=== PATIENT | female | born 1980 ===

== ENCOUNTER 2017-04-04 12:54 | Outpatient (CLI) | payer OTHER ==
[~2017-04-04 12:54] MED LIST: GABAPENTIN100 MG PO
== END 2017-04-04 13:01 | disposition home or self-care (01) ==
LOC: RAD 12:54
DX: M76.11 Psoas tendinitis, right hip (principal)

== ENCOUNTER 2023-03-01 10:26 | Outpatient (CLI) | payer OTHER ==
[~2023-03-01 10:26] MED LIST changes: +NEURONTIN300 MG PO
== END 2023-03-01 10:52 | disposition home or self-care (01) ==
LOC: SONOGRAMA 10:26
PROVIDERS: ATTEND Pathology Anatomic Pathology & Clinical Pathology
DX: D34 Benign neoplasm of thyroid gland (principal); E07.89 Other specified disorders of thyroid; E04.2 Nontoxic multinodular goiter

== ENCOUNTER 2023-04-27 07:16 | Outpatient (CLI) | payer OTHER | END 2023-04-27 07:25 | disposition home or self-care (01) | LOC: MAMO-SONO 07:16 | PROVIDERS: ATTEND Obstetrics & Gynecology | DX: N85.8 Other specified noninflammatory disorders of uterus (principal); N64.4 Mastodynia; N63.0 Unspecified lump in unspecified breast; Z12.31 Encounter for screening mammogram for malignant neoplasm of breast | CPT/HCPCS: 72197; 76641; 77067; Q9965; 72196 ==

== ENCOUNTER 2023-04-27 12:07 | Outpatient (CLI) | payer OTHER ==
[2023-04-27 13:48] LABS: HEMATOCRIT 38.5 % (36.0-45.00); HEMOGLOBIN 13.2 g/dL (12.0-15.00); MEAN CELL VOLUME 86.9 fL (80.00-100.00); MEAN CORPUSCULAR HEMOGLOBIN 29.8 pg (27.00-32.0); MEAN CORPUSCULAR HGB CONC 34.2 g/dl (32.0-36.0); PLATELET COUNT 276 K/uL (150-450); RED BLOOD COUNT 4.42 M/uL (4.00-6.00); RED CELL DISTRIBUTION WIDTH 14.2 % (11.5-14.5)
[2023-04-27 14:26] LABS: ALBUMIN 3.3 gm/dL (3.4-5.0); BILIRUBIN TOTAL 0.33 mg/dL (0.3-1.2); CALCIUM 8.1 mg/dL (8.5-10.1); CHOL HDL RATIO 4.9 (0-5.0); CREATININE SERUM 0.63 mg/dL (0.55-1.02); GFR 102.66; GLOBULINA 3.7 G/DL (2.4-3.5); POTASSIUM 3.55 mEq/L (3.5-5.1); T4 FREE 1.03 NG/ML (0.76-1.46)
[2023-04-27 14:34] LABS: FOLIC ACID 11.32 ng/ml (4.78-20); VITAMIN D3 25 HYDROXY 27.25 ng/ml (30-120)
== END 2023-04-27 12:30 | disposition home or self-care (01) ==
LOC: LAB 12:07
PROVIDERS: ATTEND Internal Medicine Endocrinology, Diabetes & Metabolism
DX: D50.9 Iron deficiency anemia, unspecified (principal); E88.810 Metabolic syndrome; R73.01 Impaired fasting glucose

== ENCOUNTER → 2023-04-28 08:28 | Outpatient (CLI) | payer OTHER | END | disposition home or self-care (01) | LOC: LAB 08:28 | PROVIDERS: ATTEND Internal Medicine Endocrinology, Diabetes & Metabolism | DX: D50.9 Iron deficiency anemia, unspecified (principal); E88.810 Metabolic syndrome; R73.01 Impaired fasting glucose; E03.8 Other specified hypothyroidism; E06.3 Autoimmune thyroiditis; E78.2 Mixed hyperlipidemia; E55.9 Vitamin D deficiency, unspecified; E85.89 Other amyloidosis; E11.65 Type 2 diabetes mellitus with hyperglycemia; D64.9 Anemia, unspecified; D35.2 Benign neoplasm of pituitary gland; L68.0 Hirsutism; E28.2 Polycystic ovarian syndrome; E22.1 Hyperprolactinemia ==